=== PATIENT | male | born 1960 | race Hispanic/Latino ===

== ENCOUNTER → 2024-05-02 | Day surgery (SDC) | payer OTHER ==
[~2024-05-02] MED LIST: LIDOCAINE HCL 2% LOCAL INJ 5 ML SDV VIAL INJ ONE; METOPROLOL SUCC25 MG PO; MIDAZOLAM HCL 2 MG/2 ML VIAL ONE; OMEGA 3 FISH O1 EACH PO; PROPOFOL IV EMULSION 10 MG/ML 20 ML VIAL ONE
[2024-05-02] MEDS: LACTATED RINGER'S 1,000 ML ONE (13:40)
[2024-05-02 16:55] VITALS: BP 129/87; PULSE 88; RESP 16; O2SAT 97
== END | disposition home or self-care (01) ==
LOC: OR 13:20
PROVIDERS: ATTEND Internal Medicine Gastroenterology
DX: K59.00 Constipation, unspecified (principal); K63.5 Polyp of colon; K57.30 Diverticulosis of large intestine without perforation or abscess without bleeding; K64.8 Other hemorrhoids; I10 Essential (primary) hypertension; Z86.19 Personal history of other infectious and parasitic diseases; R94.31 Abnormal electrocardiogram [ECG] [EKG]; Z01.810 Encounter for preprocedural cardiovascular examination; Z79.899 Other long term (current) drug therapy
CPT/HCPCS: 45380; 45385; 93005; J2003; J2704; J7121; 45384; J2250